=== PATIENT | male | born 1955 | race Caucasian/White ===

== ENCOUNTER 2021-04-16 08:41 | Outpatient (CLI) | payer BC, SELFPAY ==
[2021-04-16 09:10] VITALS: BP 164/92; PULSE 93; RESP 18; TEMP 36.8; O2SAT 99; BMI 42.7
[2021-04-16 10:00] VITALS: BP 150/93; PULSE 93; RESP 18; TEMP 36.9; O2SAT 99
[2021-04-16 11:16] VITALS: BP 156/89; PULSE 97; RESP 17; TEMP 36.8; O2SAT 97
== END 2021-04-16 08:42 | disposition home or self-care (01) ==
LOC: OPS 08:43
PROVIDERS: Visit Provider Family Medicine
DX: U07.1 COVID-19 (principal)
CPT/HCPCS: 96365